=== PATIENT | female | born 2000 | race Caucasian/White ===

== ENCOUNTER 2019-04-22 10:36 | Emergency (ER) | payer OTHER ==
[2019-04-22 10:44] VITALS: BP 108/65; PULSE 77; TEMP 98.5; BMI 31.1
[2019-04-22] MEDS ORDERED: METOCLOPRAMIDE HCL INJECTION 10 MG/2 ML VIAL IVPUSH ONE (11:57)
[2019-04-22] MEDS ORDERED: SODIUM CHLORIDE 1,000 ML IV STA (11:59)
[2019-04-22] MEDS ORDERED: ACETAMINOPHEN 1000 MG/100 ML VIAL (NON FORMULARY) IVPB ONE (12:14)
[2019-04-22] MEDS ORDERED: ACETAMINOPHEN INJECTION 100 ML IVPB ONE (12:34)
[2019-04-22] MEDS ORDERED: METOCLOPRAMIDE HCL INJECTION 10 MG/2 ML VIAL ONE (12:34)
[2019-04-22 12:44] LABS: BASO % 0.9 % (0-2.0); EOS % 0.6 % (0-4.5); HEMATOCRIT 40.1 % (32.4-45.2); HEMOGLOBIN 12.9 GM/dL (10.7-15.3); LYMPH % 32.9 % (8-40); MCH 25.7 pg (25.7-33.7); MCHC 32.3 g/dl (32.0-36.0); MEAN CELL VOLUME 79.7 fl (80-96); MEAN PLT VOLUME 8.2 fl (7.5-11.1); MONO % 4.6 % (3.8-10.2); PLATELET COUNT 257 K/MM3 (134-434); RBC 5.03 M/mm3 (3.60-5.2); RDW 14.8 % (11.6-15.6)
[2019-04-22 13:14] LABS: ALBUMIN 3.8 g/dl (3.4-5.0); BILIRUBIN,TOTAL 0.3 mg/dL (0.2-1); BLOOD UREA NITROGEN 9.7 mg/dL (7-18); CALCIUM 9.5 mg/dL (8.5-10.1); CREATININE 0.7 mg/dL (0.55-1.3); MAGNESIUM 2.4 mg/dL (1.8-2.4); POTASSIUM 4.2 mmol/L (3.5-5.1); TOT PROT 7.1 g/dl (6.4-8.2)
--- NOTE | 2019-04-22 13:47 | PDOC ---
History of Present Illness - General Chief Complaint: CVA/TIA Stated Complaint: WEAKNESS/NUMBNESS Time Seen by Provider: 04/22/19 11:39 History Source: Patient Exam Limitations: No Limitations - History of Present Illness Initial Comments: 04/22/19 12:11 19 yo F w/ a h/o migraines, anxiety comes in c/o 2 days of a migraines headache which started as a mild headache and progressively got worse, it feels like her usual headaches and is associated with photophobia, phonophobia; but she is concerned because she has associated lightheadedness with numbness to the face, hands, thighs and toes which all started yesterday. She says that she feels like her speech as slurred today which worried her. No other complaints today, no fever/chills, no vomiting, no CP, no SOB, no neck pain/stiffness, no head trauma/fall, no known sick contacts, no recent travel. Pt took a fioricet yesterday which only made her sleep. Past History - Past Medical History Allergies/Adverse Reactions: Allergies Allergy/AdvReac Type Severity Reaction Status Date / Time Penicillins Allergy Verified 04/22/19 10:39 surprax Allergy Uncoded 04/22/19 10:39 Home Medications: Ambulatory Orders NK [No Known Home Medication] 05/18/14 Asthma: Yes COPD: No Other medical history: TE fistula - Immunization History Td Vaccination: No TDAP Vaccination: Yes Immunization Up to Date: Yes - Suicide/Smoking/Psychosocial Hx Smoking History: Current some day smoker Number of Cigarettes Smoked Daily: 0 Information on smoking cessation initiated: No Hx Alcohol Use: Yes Drug/Substance Use Hx: No Substance Use Type: None Review of Systems - Review of Systems Able to Perform ROS?: Yes Constitutional: No: Chills, Fever, Malaise, Night Sweats HEENTM: No: Eye Pain, Recent change in vision, Throat Pain Respiratory: No: Cough, Shortness of Breath Cardiac (ROS): No: Chest Pain, Palpitations, Chest Tightness ABD/GI: Yes: Nausea. No: Diarrhea, Vomiting, Abdominal cramping : No: Dysuria, Hematuria Musculoskeletal: No: Back Pain Integumentary: No: Rash Neurological: Yes: Headache, Numbness, Dizziness Psychiatric: No: Change in Appetite Endocrine: No: Unexplained Weight Loss *Physical Exam - Vital Signs Last Vital Signs Temp Pulse Resp BP Pulse Ox 98.5 F 77 18 108/65 98 04/22/19 10:40 04/22/19 10:40 04/22/19 10:40 04/22/19 10:40 04/22/19 10:40 - Physical Exam General Appearance: Yes: Nourished. No: Apparent Distress HEENT: positive: INGRIS, Normal ENT Inspection, Normal Voice. negative: Pale Conjunctivae, Scleral Icterus (R), Scleral Icterus (L) Neck: positive: Supple. negative: Decreased range of motion, Tender midline Respiratory/Chest: positive: Lungs Clear, Normal Breath Sounds. negative: Respiratory Distress, Accessory Muscle Use Cardiovascular: positive: Regular Rhythm, Regular Rate Comments:: 04/22/19 13:52 A+Ox3 (person, place, time), normal sensorium. Visual rivera: full to confrontation. Pupils: equal, round, and reactive to light. EOM: intact and smooth pursuit. No nystagmus. Sensation: V1, V2, and V3 normal b/l Facial strength: muscles of mastication, facial expression, shoulder shrug, and head turn normal. Hearing: grossly intact b/l Mouth: tongue protrudes midline and moves Left/Right equal b/l. Uvula rises symmetrically. Motor: UE and LE 5/5 diffusely. Sensation: light touch and pinprick WNL. Cerebellum: [id number] normal without dysmetria or intention tremor. [id number] wnl. No dysdiadodyskinesia. Gait: unassisted, steady, Romberg negative, No atalgia, difficulty in ambulation or ataxia. Gastrointestinal/Abdominal: positive: Normal Bowel Sounds, Soft. negative: Tender Musculoskeletal: positive: Normal Inspection. negative: CVA Tenderness, Decreased Range of Motion Extremity: positive: Normal Capillary Refill, Normal Inspection, Normal Range of Motion. negative: Tender, Pedal Edema Integumentary: positive: Normal Color, Dry. negative: Jaundice, Rash Neurologic: positive: Fully Oriented, Alert, Normal Mood/Affect ED Treatment Course - LABORATORY CBC & Chemistry Diagram: 04/22/19 12:20 04/22/19 12:20 - ADDITIONAL ORDERS Additional order review: Laboratory Results 04/22/19 04/22/19 04/22/19 12:39 12:20 12:20 Sodium 140 Potassium 4.2 Chloride 108 H Carbon Dioxide 25 Anion Gap 7 L BUN 9.7 Creatinine 0.7 Est GFR (CKD-EPI)AfAm 143.54 Est GFR (CKD-EPI)NonAf 123.85 Random Glucose 75 Calcium 9.5 Phosphorus 3.0 Magnesium 2.4 Total Bilirubin 0.3 AST 14 L ALT 23 Alkaline Phosphatase 66 Total Protein 7.1 Albumin 3.8 Beta HCG, Quant < 1.0 Urine HCG, Qual Negative 04/22/19 12:20 RBC 5.03 MCV 79.7 L MCHC 32.3 RDW 14.8 MPV 8.2 Neutrophils % 61.0 Lymphocytes % 32.9 Monocytes % 4.6 Eosinophils % 0.6 Basophils % 0.9 - RADIOLOGY Radiology Studies Ordered: Category Date Time Status HEAD CT WITHOUT CONTRAST [CT] Stat CT Scan 04/22/19 12:08 Ordered - Medications Given in the ED: ED Medications Discontinued Medications Generic Name Dose Route Start Last Admin Trade Name Freq PRN Reason Stop Dose Admin Acetaminophen 1,000 mg 04/22/19 12:14 04/22/19 13:17 Ofirmev Injection - IVPB 04/22/19 12:15 1,000 mg ONCE ONE Administration Diphenhydramine HCl 25 mg 04/22/19 11:57 04/22/19 12:45 Benadryl Injection - IVPUSH 04/22/19 11:58 25 mg ONCE ONE Administration Sodium Chloride 1,000 mls @ 1,000 mls/hr 04/22/19 11:59 04/22/19 12:45 Normal Saline - IV 04/22/19 12:58 1,000 mls/hr ASDIR STA Administration Metoclopramide HCl 10 mg 04/22/19 11:57 04/22/19 12:45 Reglan Injection - IVPUSH 04/22/19 11:58 10 mg ONCE ONE Administration Medical Decision Making - Medical Decision Making 04/22/19 12:15 19 yo F w/ likely atypical migraine presenting with numbness. Will do a CT head since she ahs never had numbness with her migraines in the past R/O intracranial pathology. Will line and lab, give reglan, benadryl, IV fluids, tylenol and reassess 04/22/19 13:53 Pt says that she is feelng much better, she is smiling, all symptoms resolved, no headache, no numbness, she is asking to get discharged. She does not want the CT scan, refuses, says that she will see her Neurologist tomorrow and if they recommend it, she will do it. I still recommend it and she verbalizes understanding. Will discharge with PMD follow up, Neuro follow up Return for worsening/concerning symptoms Pt verbalizes understanding and agrees with plan *DC/Admit/Observation/Transfer Diagnosis at time of Disposition: Numbness Migraine Qualifiers: Migraine type: unspecified Status migrainosus presence: without status migrainosus Intractability: not intractable Qualified Code(s): G43.909 - Migraine, unspecified, not intractable, without status migrainosus - Discharge Dispostion Disposition: HOME Condition at time of disposition: Stable - Referrals - Patient Instructions Printed Discharge Instructions: DI for Migraine Additional Instructions: Please see your Neurologist tomorrow as discussed. We wanted to perform a cat scan of your brain but you declined saying that you prefer to follow up with your neurologist. Please return for worsening/concerning symptoms - Post Discharge Activity Forms/Work/School Notes: Back to School, Back to Work
== END 2019-04-22 14:10 | disposition home or self-care (01) ==
LOC: JER 10:36
PROC: 3E033NZ Introduction of Analgesics, Hypnotics, Sedatives into Peripheral Vein, Percutaneous Approach (ICD-10-PCS; principal; 2019-04-22)
PROC: 3E033GC Introduction of Other Therapeutic Substance into Peripheral Vein, Percutaneous Approach (ICD-10-PCS; 2019-04-22)
PROC: 3E0337Z Introduction of Electrolytic and Water Balance Substance into Peripheral Vein, Percutaneous Approach (ICD-10-PCS; 2019-04-22)
DX: R20.0 Anesthesia of skin (principal); G43.909 Migraine, unspecified, not intractable, without status migrainosus
CPT/HCPCS: 36415; 80053; 83735; 84100; 84702; 84703; 85025; 99284-25; J0131; J7030